=== PATIENT | male | born 1970 ===

== ENCOUNTER 2021-05-14 12:10 | Emergency (ER) | payer SELFPAY ==
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
[2021-05-14 13:28] VITALS: BP 170/118; PULSE 91; RESP 18; TEMP 36.9; O2SAT 99; BMI 25.9
--- NOTE | 2021-05-14 14:11 | PC.NURSE ---
DISCHARGED PATIENT AND RIDE IS ON THEIR WAY, PATIENT VERBALIZES UNDERSTANDING OF INSTRUCTIONS AND MEDS, PATIENT AMBULATED TO WAITING ROOM
== END 2021-05-14 14:13 | disposition home or self-care (01) ==
PROVIDERS: Emergency Provider Nurse Practitioner Family
DX: Z04.1 Encounter for examination and observation following transport accident (principal); I10 Essential (primary) hypertension; V59.9XXA Occupant (driver) (passenger) of pick-up truck or van injured in unspecified traffic accident, initial encounter
CPT/HCPCS: 72040; 72072; 99282